=== PATIENT | male | born 1965 | race Caucasian/White ===

== ENCOUNTER → 2017-01-19 | Day surgery (SDC) | payer OTHER ==
[~2017-01-19] MED LIST: ARTHROTEC 50 M1 EACH PO; CYMBALTA 30MG C30 MG PO; JANUVIA50 MG PO; LIPITOR20 MG PO; NORCO 5/3251 EACH PO; PROTONIX 40MG T40 MG PO; ZESTORETIC 20-1 EACH PO
== END | disposition home or self-care (01) ==
LOC: FAS 07:33
DX: K62.1 Rectal polyp (principal); F41.9 Anxiety disorder, unspecified; M19.90 Unspecified osteoarthritis, unspecified site; F32.9 Major depressive disorder, single episode, unspecified; E78.00 Pure hypercholesterolemia, unspecified; K21.9 Gastro-esophageal reflux disease without esophagitis; I10 Essential (primary) hypertension; E11.9 Type 2 diabetes mellitus without complications; E87.5 Hyperkalemia; M06.9 Rheumatoid arthritis, unspecified; E55.9 Vitamin D deficiency, unspecified; Z88.2 Allergy status to sulfonamides; Z87.442 Personal history of urinary calculi; Z98.0 Intestinal bypass and anastomosis status; Z85.038 Personal history of other malignant neoplasm of large intestine
CPT/HCPCS: 88305; J2704

== ENCOUNTER → 2022-03-21 | Day surgery (SDC) | payer OTHER ==
[~2022-03-21] VITALS: Ht 182.9 cm; Wt 138.3 kg
[~2022-03-21] MED LIST changes: +ALLERGY RELIE15.8 ML; +COZAAR100 MG PO; +COZAAR50 MG PO; +HCTZ25 MG PO; +JARDIANCE10 MG PO; +LEVEMIR VI100 UNITS/ SC; +LEXAPRO20 MG PO; +LOPRESSOR50 MG PO; +MELOXICAM15 MG PO; +METFORMIN HCL500 MG PO; +MICRONASE5 MG PO; +NEURONTIN300 MG PO; +OZEMPIC1 MG/0.75 SC; +PRILOSEC20 MG PO; +VITAMIN D2000 UNI1 PO; +ZOLOFT50 MG PO
== END | disposition home or self-care (01) ==
LOC: FAS 07:10
DX: D12.0 Benign neoplasm of cecum (principal); D12.4 Benign neoplasm of descending colon; D12.3 Benign neoplasm of transverse colon; D12.5 Benign neoplasm of sigmoid colon; K29.50 Unspecified chronic gastritis without bleeding; K44.9 Diaphragmatic hernia without obstruction or gangrene; K31.9 Disease of stomach and duodenum, unspecified; Z85.038 Personal history of other malignant neoplasm of large intestine; I12.9 Hypertensive chronic kidney disease with stage 1 through stage 4 chronic kidney disease, or unspecified chronic kidney disease; E11.22 Type 2 diabetes mellitus with diabetic chronic kidney disease; N18.9 Chronic kidney disease, unspecified; M19.90 Unspecified osteoarthritis, unspecified site; K21.9 Gastro-esophageal reflux disease without esophagitis; Z88.2 Allergy status to sulfonamides; Z79.4 Long term (current) use of insulin; Z79.899 Other long term (current) drug therapy
CPT/HCPCS: J2250; J2704; J7120

== ENCOUNTER → 2022-06-13 | Day surgery (SDC) | payer OTHER ==
[~2022-06-13] VITALS: Ht 182.9 cm; Wt 138.3 kg
[~2022-06-13] MED LIST changes: +ACETAMINOPHEN500 M1 PO; +COLACE100 MG PO; +OXY-IR 5MG5 MG PO
[2022-06-13 07:58] LABS: ALBUMIN 3.4 g/dL (3.4-5.0); BILIRUBIN - TOTAL 0.6 mg/dL (0.2-1.0); BUN/CREAT RATIO (CALC) 18.4 RATIO; CREATININE 1.58 mg/dL (0.67-1.17); GLOBULIN (CALCULATION) 3.8 g/dL; POTASSIUM 4.7 mmol/L (3.5-5.1); TOTAL PROTEIN 7.2 g/dL (6.4-8.2)
== END | disposition home or self-care (01) ==
LOC: FAS 06:48
PROVIDERS: Student in an Organized Health Care Education/Training Program
DX: K80.10 Calculus of gallbladder with chronic cholecystitis without obstruction (principal); K76.0 Fatty (change of) liver, not elsewhere classified; K85.90 Acute pancreatitis without necrosis or infection, unspecified; K31.7 Polyp of stomach and duodenum; K44.9 Diaphragmatic hernia without obstruction or gangrene; D12.6 Benign neoplasm of colon, unspecified; I10 Essential (primary) hypertension; E11.9 Type 2 diabetes mellitus without complications; Z88.2 Allergy status to sulfonamides; Z79.4 Long term (current) use of insulin; Z79.899 Other long term (current) drug therapy
CPT/HCPCS: 36415; 80053; 82150; 83690; J0690; J1100; J1644; J1885; J2250; J2370; J2405; J2704; J3010; J7120; Q9967